=== PATIENT | female | born 1965 | race Caucasian/White ===

== ENCOUNTER 2023-06-19 10:38 | Emergency (ER) | payer OTHER, SELFPAY ==
[2023-06-19 10:39] VITALS: BP 119/76
[2023-06-19 11:49] VITALS: BP 93/72
[2023-06-19 12:03] LABS: % Basophils 0.3 % (0-2); % Eosinophils 0.6 % (0-6); % Immature Granulocytes 0.2 % (0-0.5); % Lymphocytes 15.9 % (20.5-51.1); % Monocytes 8.1 % (1.7-9.3); % Neutrophils 74.9 % (42.2-75.2); Absolute Eosinophils 0.1 10^3/uL (0-0.7); Absolute Neutrophils 9.6 10^3/uL (1.4-6.5); Hematocrit 39.5 % (37.0-47.0); Hemoglobin 13.9 g/dL (12.0-16.0); Mean Corp Hgb Conc. 35.2 g/dL (33.0-37.0); Mean Corpuscular Hgb 31.2 pg (27.0-31.0); Mean Corpuscular Volume 88.6 fL (81.0-99.0); Mean Platelet Volume 9.4 fL (7.4-10.4); Nucleated Red Blood Cells % 0 %; Platelet Count 258 10^3/uL (130-400); Red Blood Cell Count 4.46 10^6/uL (4.20-5.40); Red Cell Dist. Width 12.1 % (11.5-14.5); White Blood Cell Count 12.8 10^3/uL (4.8-10.8)
[2023-06-19 12:11] LABS: COVID-19 Antigen Negative (Negative)
[2023-06-19 12:14] LABS: ALT (SGPT) 10 U/L (0-35); AST (SGOT) 19 U/L (14-36); Albumin 4.5 g/dl (3.5-5.0); Alkaline Phosphatase 73 U/L (38-126); Blood Urea Nitrogen 10 mg/dl (7-17); Calcium 9.4 mg/dl (8.4-10.2); Carbon Dioxide 22 mmol/L (22-30); Chloride 107 mmol/L (98-107); Glucose 109 mg/dl (70-99); Potassium 3.8 mmol/L (3.5-5.1); Sodium 136 mmol/L (135-145); Total Bilirubin 0.8 mg/dl (0.2-1.3); Total Protein 7.6 g/dl (6.3-8.2); eGFR > 60.00
--- NOTE | 2023-06-19 12:33 | ED.GENMED ---
History of Present Illness
General
Chief Complaint: Cold/Flu/URI Symptoms
Source: patient
Exam Limitations: none
Time Seen by Provider: 06/19/23 12:33
Nursing documentation reviewed up to this point in time: agreed with
Travel History
Have you had any contact with someone who has COVID-19?: No
Do you have any symptoms of coronavirus? Fever > 100 degrees, chills, cough, shortness of breath, sore throat, loss of taste or smell, muscle aches, or headache?: No
History of Present Illness
History of Present Illness:
57-year-old female with past medical history of tobacco use, hypothyroidism, asthma who is presenting emergency department today with 2 days of cough, generalized URI symptoms, and fevers/chills. Patient states that she is also had a decreased
appetite associated with this. Patient also has left upper back discomfort that she has had for the past few weeks. Patient denies any trouble breathing, chest pain, abdominal pain. Patient denies any nausea or vomiting. Patient has any dysuria.
Patient states that she has an albuterol inhaler at home that she uses as needed, she states that she has only had to use it much. Patient denies any syncopal episodes. Patient denies any palpitations. Patient denies any lower leg swelling or
pain. Patient denies history of hospitalization for pneumonia
Past History
Past History
ED Past Medical History: Asthma, Hypothyroidism and Other (Pancreatitis)
ED Past Surgical History: Gynecological and Other (Anal fissure)
Social History
Tobacco: Smoker
Alcohol: Daily
Personal: Single
Employment: Employed
Family History
Family History: Other (Noncontributory)
Review of Systems
Review of Systems
All Other Systems: ROS reviewed and negative except as documented in HPI and ROS
Phy Exam
Physical Exam
Physical Exam:
General: Patient is well appearing and in no acute distress; non-toxic
Skin: Warm and dry, no rashes or lesions
Head: Normocephalic, atraumatic
Eyes: Sclera non-icteric. EOMs intact.
Throat: Posterior pharynx non-erythematous.
Cardiac: Regular rate and rhythm, no murmurs
Peripheral Vascular: No lower extremity edema or erythema. Negative Andrei's sign bilaterally.
Pulm: Normal respiratory effort, patient is not hypoxic. Scattered wheezes heard in upper lung bases.
Abdomen: No abdominal tenderness to palpation.
Musculoskeletal: Patient has no tenderness to palpation of left upper back. Patient has full range of motion of bilateral upper extremities.
Neuro: CN II-XII intact, no focal neurologic deficits.
Psychiatric: Appropriate mood and affect.
Scores
PE Wells Score
Symptoms of DVT: No
No alternative diagnosis better explains the illness: No
Tachycardia with pulse > 100: No
Immobilization (>=3 days) or surgery within previous 4 weeks: No
Prior history of DVT or pulmonary embolism: No
Presence of hemoptysis: No
Presence of malignancy: No
Pulmonary Embolism Risk Score: 0
Probability of PE: Pt is low risk
Course
Orders/Labs/Results
Orders:
Orders
06/19/23 10:45
ECG [Electrocardiogram (*1)] Urgent
Reason for Study: Other
Other Reason for Exam: L shoulder pain
EKG- Treatment ONCE
06/19/23 11:34
CR Chest - 2 Views Urgent
Comment:
Reason For Exam: SOB, cough, L upper back pain
06/19/23 11:43
COVID-19 Antigen Urgent
Source: Nasal Swab
Complete Blood Count/With Diff Urgent
Comprehensive Metabolic Panel Urgent
Influenza A+B Rapid Molecular Urgent
DAIANA Source: Nasal Swab
Specimen Description:
06/19/23 12:44
Ipratropium/Albuterol Sulfate [Duoneb] 3 ml INH R NOW ONE
06/19/23 12:53
0.9% Sodium Chloride 500 ml [Nss] 500 ml IV BOLUS
Abnormal Lab Results
06/19/23
11:43
WBC 12.8 H 10^3/uL
(4.8-10.8)
MCH 31.2 H pg
(27.0-31.0)
Absolute Neuts (auto) 9.6 H 10^3/uL
(1.4-6.5)
Absolute Monos (auto) 1.0 H 10^3/uL
(0.1-0.6)
Lymphocytes % 15.9 L %
(20.5-51.1)
Glucose 109 H mg/dl
(70-99)
06/19/23 11:43
06/19/23 11:43
Vital Signs
Initial and Last Documented VS:
Initial Vital Signs
Temp Pulse Resp BP Pulse Ox
98.1 F 92 24 119/76 98
06/19/23 10:39 06/19/23 10:39 06/19/23 10:39 06/19/23 10:39 06/19/23 10:39
Last Documented Vital Signs
Temp Pulse Resp BP Pulse Ox
98.1 F 76 19 96/56 97
06/19/23 10:39 06/19/23 12:53 06/19/23 12:53 06/19/23 14:00 06/19/23 14:30
MDM/Problems Addressed
Differential Diagnosis Includes:
Differentials include asthma exacerbation, acute bronchitis, pneumonia, influenza, COVID-19, COPD, PE
MDM/Problems Addressed:
coughing, general URI symptoms
*Radiology
Radiology exam reviewed: preliminary read by ED provider (On my read, no acute cardiopulmonary disease)
*Pulse Oximetry
Patient hypoxic: no
*EKG
Interpreted by ED Provider?: Yes
EKG Intrepretation Date: 05/02/24
Interpretation: normal
Comparison EKG: no changes
Heart Rate: 75
Rate: normal
Rhythm: sinus
[place]: normal axis
Interval: normal interval, normal QT interval and normal HI interval
QRS Pattern: normal QRS
Ischemia: no ischemia
*Critical Care Note
Total Time (30-74mins, 75-104mins- exclusive of procedures): Not Applicable
Data Reviewed
Review of Other/Old Records Reveals: Records (Reviewed ER physician documentation from 10/02/2016, reviewed ER physician documentation from 09/27/2015)
Source: patient
Patient Management
Escalation/DeEscalation of care consider admission/obs:
57-year-old female with past medical history of tobacco use, hypothyroidism, asthma who is presenting emergency department today with 2 days of cough, generalized URI symptoms, and fevers/chills. On exam, patient is well-appearing, she does have
wheezing heard in upper lung bases. She is not hypoxic. She is afebrile. Her lab work here in the emergency department demonstrates a leukocytosis, and her CMP is unremarkable. She tested negative for COVID. Her chest x-ray demonstrates
increased biapical pleural thickening as well as increased stranding in the medial and posterior aspect of the left lung base with no pleural effusion, no pneumothorax. Also showed some mild degenerative changes in the spine, which may explain
patient's back pain.
Discussed findings with patient, will initiate treatment to cover for any developing pneumonia we will send Augmentin to her pharmacy. Patient was treated here in the emergency department with fluids and 1 DuoNeb treatment. Patient that she did
feel like her symptoms improved a bit after treatment. Patient states that her nebs at home and is requesting more. This was refilled for her, a prednisone taper is also interferential. Patient agreement with plan, return precautions
given, patient will follow-up with her primary next week.
ED Attending Note
-
Portions of this chart may have been created with voice recognition software.� Occasional wrong word or��sound alike� substitutions may have occurred due to the inherent limitations of voice recognition software.
Discharge Plan
Departure
Patient Disposition: Home (Routine Discharge)
Date of Disposition: 06/19/23
Time of Disposition: 14:10
Patient with high blood pressure during this ER visit?: No
Condition: Good
Discharge Problem:
Community acquired pneumonia
Instructions: Fever, Adult (DC), Community-Acquired Pneumonia, Adult (DC), BLOOD PRESSURE
Prescriptions:
New
amoxicillin-pot clavulanate [Augmentin] 500-125 mg tablet
1 tab PO TID 5 Days Qty: 15 0RF
ipratropium-albuterol 0.5 mg-3 mg(2.5 mg base)/3 mL solution for nebulization
3 ml inhalation Q6H PRN (Reason: wheezing) Qty: 90 0RF
prednisone 10 mg Tablet
See Rx Instructions .ROUTE .COMPLEX Qty: 30 0RF
Rx Instructions:
Take By Mouth:
40 mg daily x3 days, 30 mg daily x3 days,
20 mg daily x3 days, 10 mg daily x3 days.
No Action
milk thistle 500 MG capsule
500 mg PO DAILY
levothyroxine 100 MCG tablet
100 mcg PO DAILY AT 0700
folic acid 1 MG tablet
1 mg PO DAILY
albuterol sulfate 1 PUFF HFA aerosol inhaler
1 puff inhalation R Q4HPRN PRN (Reason: SHORTNESS OF BREATH)
beclomethasone dipropionate [Qvar] 8.7 GM aerosol
2 inh IH BID
calcium carbonate-vitamin D3 1 EACH tablet
1 ea PO DAILY
pantoprazole 40 MG tablet,delayed release (DR/EC)
40 mg PO DAILY Qty: 30 0RF
ibuprofen 600 MG tablet
600 mg PO TIDPRN PRN (Reason: pain) Qty: 30 0RF
Referrals:
Sven Parker MD [Family Provider] -
Stand Alone Forms: Return to Work
Activity Restrictions/Additional Instructions:
Your chest x-ray showed findings concerning for early pneumonia.
We have sent Augmentin to your pharmacy, please take one tablet three times a day for 5 days.
For the prednisone, please follow the dosing instructions on the packet.
I also refilled your duonebs.
Please follow-up with your PCP in 1 week to ensure the resolution of your symptoms and to ensure that any pneumonia has not further developed.
Please return emergency department should you experience any acute worsening of your symptoms, chest pain, shortness of breath, intractable vomiting, or any other concerns.
Interventions
Interventions:
*Risk Screen - Suicide Last Done: 06/19/23 11:50
*General Assessment Last Done: 06/19/23 11:50
*Neglect/Abuse Screening Last Done: 06/19/23 11:50
ED- Fall Risk Assessment Last Done: 06/19/23 11:50
*ED COVID-19 Vaccine History Last Done: 06/19/23 10:43
*Nursing Disposition Last Done: 06/19/23 14:49
ED- Pulmonary Assessment Last Done: 06/19/23 11:50
Discharge Date and Time
Discharge Date/Time: 06/19/23 14:49
Print Language: LAO
[2023-06-19] MEDS: DUONEB 3 ML INH (12:49)
[2023-06-19 12:51] VITALS: BP 108/66
[2023-06-19 12:53] VITALS: BP 108/66
[2023-06-19] MEDS: NSS 500 IV (12:55)
[2023-06-19 13:00] VITALS: BP 99/56
[2023-06-19 14:00] VITALS: BP 96/56
== END 2023-06-19 14:49 | disposition home or self-care (01) ==
LOC: EMR 10:38
PROVIDERS: Emergency Medicine; EMERGENCY PHYSICIAN Emergency Medicine; FAMILY PHYSICIAN Internal Medicine
DX: J18.9 Pneumonia, unspecified organism (principal); F17.200 Nicotine dependence, unspecified, uncomplicated; E03.9 Hypothyroidism, unspecified; Z11.52 Encounter for screening for COVID-19
CPT/HCPCS: 99285; 96360; 94640; 71046; 80053; 85025; 87502; 87811; 93005

== ENCOUNTER → 2023-07-07 12:10 | Outpatient (REF) | payer OTHER, SELFPAY | LOC: RAD 12:10 | PROVIDERS: ATTENDING PHYSICIAN Physician Assistant | DX: Z09 Encounter for follow-up examination after completed treatment for conditions other than malignant neoplasm (principal); J18.9 Pneumonia, unspecified organism; F17.200 Nicotine dependence, unspecified, uncomplicated | CPT/HCPCS: 71046 ==

== ENCOUNTER 2023-08-17 15:34 | Emergency (ER) | payer OTHER, SELFPAY ==
[2023-08-17 15:36] VITALS: BP 107/71
[2023-08-17 15:52] LABS: Urine Albumin 1+ (Neg - Trace); Urine Bilirubin 1+ (Negative); Urine Character Slightly Cloudy (Clear); Urine Color Yellow; Urine Glucose Negative (Negative); Urine Ketone Trace (Negative); Urine Leukocyte 2+ (Negative); Urine Nitrite Negative (Negative); Urine Occult Blood 3+ (Negative); Urine Specific Gravity 1.025 (<1.030); Urine Urobilinogen Negative (Neg - 1+)
[2023-08-17 16:07] LABS: Urine Squamous Cell 16-20 /LPF (Few)
[2023-08-17 16:08] LABS: Urine Bacteria Moderate (Negative)
[2023-08-17 16:09] LABS: Urine Red Blood Cell 16-20 /HPF (0-2); Urine White Cell 26-30 /HPF (0-5)
--- NOTE | 2023-08-17 16:25 | ED.GENMED ---
History of Present Illness
General
Chief Complaint: Urinary Symptoms
Source: patient
Time Seen by Provider: 08/17/23 16:17
History of Present Illness
History of Present Illness:
58-year-old female presenting the emergency department for evaluation of urinary frequency, urgency and dysuria. Attempted to go to urgent care today but they were closing was unable to be seen so she decided to come to the ER. Denies any fevers,
chills, rigors, nausea, vomiting, back or flank pain or any other concerns presently. Notes that she had a urinary tract infection 3 weeks ago and was treated with Macrobid and reports full resolution of symptoms. She notes on urine culture she
did test positive for E. coli.
Past History
Past History
ED Past Medical History: Asthma, Hypothyroidism and Other (Pancreatitis)
ED Past Surgical History: Gynecological and Other (Anal fissure)
Social History
Tobacco: Smoker
Alcohol: Daily
Drug: None
Personal: Single
Living: alone
Employment: Employed
Family History
Family History: Other (Noncontributory)
Review of Systems
Review of Systems
All Other Systems: ROS reviewed and negative except as documented in HPI and ROS
Phy Exam
Physical Exam
Physical Exam:
GENERAL: Alert , in no apparent distress
EYE: conjunctiva clear
Head: Normocephalic atraumatic
NECK: Supple,
ENT: mmm.
LUNGS: no acute respiratory distress
NEUROLOGICAL: Alert and oriented
SKIN: Warm and dry, skin intact.
MUSCULOSKELETAL: well perfused.
PSYCH: Normal and appropriate interaction.
Scores
Heart Failure Risk
Heart Failure Risk Score: Not Applicable
Heart Score for Chest Pain Patients
STEMI patient?: Not applicable
Withdrawal Assessment of Alcohol
Withdrawal Assessment Completed?: Not applicable
Course
Orders/Labs/Results
Orders:
Orders
08/17/23 15:43
Urinalysis Reflex To Culture Urgent
Date Specimen was Collected: 08/17/23
Time Specimen was Collected: 15:39
Urine Microscopic Reflex Cult Urgent
Urine Culture Urgent
DAIANA Source: U
Specimen Description:
Obtained by: Random
Date Specimen was Collected: 08/17/23
Time Specimen was Collected: 15:39
08/17/23 16:21
Phenazopyridine HCl [Pyridium] 200 mg PO NOW STA
08/17/23 16:28
Cefuroxime Axetil [Ceftin] 500 mg PO NOW STA
Abnormal Lab Results
08/17/23
15:43
Urine Ketones Trace A
(Negative)
Ur Occult Blood Reflex 3+ A
(Negative)
Urine Bilirubin 1+ A
(Negative)
Leukocyte Esterase Rfl 2+ A
(Negative)
Urine RBC 16-20 A /HPF
(0-2)
Urine WBC (Reflex) 26-30 A /HPF
(0-5)
Urine Bacteria (Reflex) Moderate A
(Negative)
Urine Albumin (Reflex) 1+ A
(Neg - Trace)
Vital Signs
Initial and Last Documented VS:
Initial Vital Signs
Temp Pulse Resp BP Pulse Ox
98.1 F 90 18 107/71 94
08/17/23 15:36 08/17/23 15:36 08/17/23 15:36 08/17/23 15:36 08/17/23 15:36
Last Documented Vital Signs
Temp Pulse Resp BP Pulse Ox
98.1 F 90 18 107/71 94
08/17/23 15:36 08/17/23 15:36 08/17/23 15:36 08/17/23 15:36 08/17/23 15:36
MDM/Problems Addressed
Differential Diagnosis Includes:
Cystitis, pyelonephritis, kidney stone
MDM/Problems Addressed:
58-year-old female present emergency department for urinary frequency/urgency/dysuria x 1 day. Recent UTI about 3 weeks ago that was with Macrobid and had resolution of symptoms however symptoms returned. She is afebrile here and otherwise
well-appearing. Urinalysis shows 2+ leukocyte esterase and 26-30 WBCs. Based off of symptoms and urinalysis findings symptoms seem to be most suggestive of urinary tract infection. Will treat with cefuroxime for 10 days. Urine culture sent.
Patient stable for discharge home and outpatient management with primary care provider. Aware of return precautions to the ER.
*Pulse Oximetry
Patient hypoxic: no
*Critical Care Note
Total Time (30-74mins, 75-104mins- exclusive of procedures): Not Applicable
ED Attending Note
-
Portions of this chart may have been created with voice recognition software.� Occasional wrong word or��sound alike� substitutions may have occurred due to the inherent limitations of voice recognition software.
Discharge Plan
Departure
Patient Disposition: Home (Routine Discharge)
Date of Disposition: 08/17/23
Time of Disposition: 16:25
Patient with high blood pressure during this ER visit?: No
Discharge Problem:
Urinary tract infection
Instructions: Urinary Tract Infection, Adult (DC)
Prescriptions:
New
cefuroxime axetil 500 mg tablet
500 mg PO BID 10 Days Qty: 20 0RF
phenazopyridine [Pyridium] 200 mg tablet
200 mg PO PC PRN (Reason: Pain) Qty: 6 0RF
No Action
milk thistle 500 MG capsule
500 mg PO DAILY
levothyroxine 100 MCG tablet
100 mcg PO DAILY AT 0700
folic acid 1 MG tablet
1 mg PO DAILY
albuterol sulfate 1 PUFF HFA aerosol inhaler
1 puff inhalation R Q4HPRN PRN (Reason: SHORTNESS OF BREATH)
beclomethasone dipropionate [Qvar] 8.7 GM aerosol
2 inh IH BID
calcium carbonate-vitamin D3 1 EACH tablet
1 ea PO DAILY
pantoprazole 40 MG tablet,delayed release (DR/EC)
40 mg PO DAILY Qty: 30 0RF
ibuprofen 600 MG tablet
600 mg PO TIDPRN PRN (Reason: pain) Qty: 30 0RF
amoxicillin-pot clavulanate [Augmentin] 500-125 mg tablet
1 tab PO TID 5 Days Qty: 15 0RF
ipratropium-albuterol 0.5 mg-3 mg(2.5 mg base)/3 mL solution for nebulization
3 ml inhalation Q6H PRN (Reason: wheezing) Qty: 90 0RF
prednisone 10 mg Tablet
See Rx Instructions .ROUTE .COMPLEX Qty: 30 0RF
Rx Instructions:
Take By Mouth:
40 mg daily x3 days, 30 mg daily x3 days,
20 mg daily x3 days, 10 mg daily x3 days.
Referrals:
Elsa Vargas PA-C [Family Provider] -
Interventions
Interventions:
*Risk Screen - Suicide Last Done: 08/17/23 16:02
*General Assessment Last Done: 08/17/23 16:02
*Neglect/Abuse Screening Last Done: 08/17/23 16:02
ED- Fall Risk Assessment Last Done: 08/17/23 16:38
*ED COVID-19 Vaccine History Last Done: 08/17/23 16:02
*Nursing Disposition Last Done: 08/17/23 16:39
ED-Female Genitourinary Assessment Last Done: 08/17/23 16:02
Discharge Date and Time
Discharge Date/Time: 08/17/23 16:39
Print Language: HEBREW
[2023-08-17] MEDS: CEFTIN 500 MG PO (16:33)
[2023-08-17] MEDS: Pyridium 200 MG PO (16:33)
== END 2023-08-17 16:39 | disposition home or self-care (01) ==
LOC: EMR 15:34
PROVIDERS: EMERGENCY PHYSICIAN Emergency Medicine; FAMILY PHYSICIAN Physician Assistant
DX: N39.0 Urinary tract infection, site not specified (principal); F17.200 Nicotine dependence, unspecified, uncomplicated
CPT/HCPCS: 99283; 81003; 81015; 87086

== ENCOUNTER 2023-08-26 01:03 | Inpatient (IN) | payer OTHER, SELFPAY ==
[2023-08-25 23:42] VITALS: BP 107/88
[2023-08-25 23:44] VITALS: BP 107/88
[2023-08-25 23:46] VITALS: BMI 25.4
[2023-08-25] MEDS: DILAUDID 1 MG IV (23:49)
[2023-08-26] VITALS (7 sets, daily range): BP systolic 105–123; BP diastolic 62–75; BMI 23.8
[2023-08-26 00:10] LABS: % Basophils 0.6 % (0-2); % Eosinophils 1.8 % (0-6); % Immature Granulocytes 0.3 % (0-0.5); % Lymphocytes 36.9 % (20.5-51.1); % Monocytes 8.4 % (1.7-9.3); Absolute Basophils 0.1 10^3/uL (0-0.2); Absolute Eosinophils 0.2 10^3/uL (0-0.7); Absolute Lymphocytes 3.5 10^3/uL (1.2-3.4); Absolute Monocytes 0.8 10^3/uL (0.1-0.6); Absolute Neutrophils 4.9 10^3/uL (1.4-6.5); Hematocrit 41.8 % (37.0-47.0); Hemoglobin 14.2 g/dL (12.0-16.0); Mean Corpuscular Volume 91.3 fL (81.0-99.0); Mean Platelet Volume 9.8 fL (7.4-10.4); Nucleated Red Blood Cells % 0 %; Platelet Count 314 10^3/uL (130-400); Red Blood Cell Count 4.58 10^6/uL (4.20-5.40); Red Cell Dist. Width 12.7 % (11.5-14.5); White Blood Cell Count 9.4 10^3/uL (4.8-10.8)
[2023-08-26 00:23] LABS: Blood Urea Nitrogen 7 mg/dl (7-17); Calcium 10.2 mg/dl (8.4-10.2); Carbon Dioxide 23 mmol/L (22-30); Chloride 108 mmol/L (98-107); Estimated Creatinine Clearance 68 ml/min; Glucose 137 mg/dl (70-99); Potassium 3.8 mmol/L (3.5-5.1); Sodium 139 mmol/L (135-145); eGFR > 60.00
[2023-08-26 00:24] LABS: INR 1.05; PT 13.5 Sec (11.4-14.6)
--- NOTE | 2023-08-26 00:24 | ED.GENMED ---
History of Present Illness
General
Chief Complaint: Musculo-Skeletal Complaint
Source: patient and ambulance crew
Time Seen by Provider: 08/25/23 23:45
History of Present Illness
History of Present Illness:
58-year-old female with past medical history of hypothyroidism presenting to the emergency department for evaluation with EMS after she reportedly was walking outside to have a cigarette when she felt a sudden pain and snapping sensation to her
right upper thigh with deformity causing her to fall to the ground. Patient was unable to get up off the ground and EMS was contacted and they noted significant edema and deformity to the right proximal thigh. Patient received a total of 75 mcg of
fentanyl and route to the emergency department, still noting 8 out of 10 pain. Notes that she has been having pain to this extremity for about a month to a month and a half. Saw urgent care over the weekend and had x-rays done which reportedly did
not show any abnormality
Past History
Past History
ED Past Medical History: Asthma, Hypothyroidism and Other (Pancreatitis)
ED Past Surgical History: Gynecological and Other (Anal fissure)
Social History
Tobacco: Smoker
Alcohol: Daily
Drug: None
Personal: Single
Living: alone
Employment: Employed
Family History
Family History: Other (Noncontributory)
Review of Systems
Review of Systems
All Other Systems: ROS reviewed and negative except as documented in HPI and ROS
Phy Exam
Physical Exam
Physical Exam:
GENERAL: Alert , in no apparent distress
EYE: conjunctiva clear
Head: Normocephalic atraumatic
NECK: Supple,
ENT: mmm.
LUNGS: no acute respiratory distress
NEUROLOGICAL: Alert and oriented
SKIN: Warm and dry, skin intact.
MUSCULOSKELETAL: Right lower extremity: Deformity at the right proximal femur. Moderate soft tissue swelling. No tenderness of the knee, tib-fib or ankle. Easily palpable pedal pulse. Cap refill less than 2 seconds. Sensation grossly intact to
light touch. Remainder of extremities within normal limits
PSYCH: Normal and appropriate interaction.
Scores
Heart Failure Risk
Heart Failure Risk Score: Not Applicable
Heart Score for Chest Pain Patients
STEMI patient?: Not applicable
Withdrawal Assessment of Alcohol
Withdrawal Assessment Completed?: Not applicable
Course
Orders/Labs/Results
Orders:
Orders
08/25/23 23:46
HYDROmorphone [Dilaudid] 1 mg IV NOW STA
08/25/23 23:55
Type+Screen Urgent
Basic Metabolic Panel Urgent
Complete Blood Count/With Diff Urgent
PTT Urgent
Prothrombin Time Urgent
08/26/23 00:00
CR Hip - RT without Pel 1 Vw Urgent
Reason For Exam: deformity, severe pain
08/26/23 00:22
CT Lower Ext W/o Iv Cont Rt Urgent
Comment:
Reason For Exam: proximal femur fracture
08/26/23 00:33
Alcohol Routine
08/26/23 00:34
Urine Drug Abuse Screen Routine
Abnormal Lab Results
08/25/23
23:55
Absolute Lymphs (auto) 3.5 H 10^3/uL
(1.2-3.4)
Absolute Monos (auto) 0.8 H 10^3/uL
(0.1-0.6)
Chloride 108 H mmol/L
(98-107)
Glucose 137 H mg/dl
(70-99)
08/25/23 23:55
08/25/23 23:55
Vital Signs
Initial and Last Documented VS:
Initial Vital Signs
Pulse Resp BP Pulse Ox
70 16 107/88 99
08/25/23 23:44 08/25/23 23:44 08/25/23 23:44 08/25/23 23:44
Last Documented Vital Signs
Pulse Resp BP Pulse Ox
70 16 107/88 99
08/25/23 23:44 08/25/23 23:44 08/25/23 23:44 08/25/23 23:44
MDM/Problems Addressed
Differential Diagnosis Includes:
Fracture, dislocation, concern for possible pathologic fracture/malignancy severe osteoporosis
MDM/Problems Addressed:
58-year-old female presenting emergency department for evaluation with EMS following nontraumatic injury to her right proximal femur. Based off presentation I do have significant concern for proximal femur fracture. Stat x-ray was ordered. 1 mg
Dilaudid ordered for pain control. Will consult with orthopedics following x-ray. Anticipate admission
*Radiology
Radiology exam reviewed: preliminary read by ED provider (Displaced and angulated proximal femur fracture)
*Pulse Oximetry
Patient hypoxic: no
*Critical Care Note
Total Time (30-74mins, 75-104mins- exclusive of procedures): Not Applicable
Data Reviewed
Review of Other/Old Records Reveals: Labs and Records
Patient Management
Discussion with other providers: Hospitalist and Shank Boner
Escalation/DeEscalation of care consider admission/obs:
Dr. Saul from orthopedics was consulted and requests full femur imaging and for patient to be kept n.p.o. He will see in the morning with plans for fixing tomorrow morning. Hospitalist team was notified and accepts for continued evaluation
and treatment.
ED Attending Note
-
Portions of this chart may have been created with voice recognition software.� Occasional wrong word or��sound alike� substitutions may have occurred due to the inherent limitations of voice recognition software.
Discharge Plan
Departure
Patient Disposition: Admit
Date of Disposition: 08/26/23
Time of Disposition: 00:24
Presentation/result/management discussed w/ accepting MD/DO: Hospitalist
Discharge Problem:
Closed fracture of proximal end of right femur
Prescriptions:
No Action
milk thistle 500 MG capsule
500 mg PO DAILY
levothyroxine 100 MCG tablet
100 mcg PO DAILY AT 0700
folic acid 1 MG tablet
1 mg PO DAILY
albuterol sulfate 1 PUFF HFA aerosol inhaler
1 puff inhalation R Q4HPRN PRN (Reason: SHORTNESS OF BREATH)
beclomethasone dipropionate [Qvar] 8.7 GM aerosol
2 inh IH BID
calcium carbonate-vitamin D3 1 EACH tablet
1 ea PO DAILY
pantoprazole 40 MG tablet,delayed release (DR/EC)
40 mg PO DAILY Qty: 30 0RF
ibuprofen 600 MG tablet
600 mg PO TIDPRN PRN (Reason: pain) Qty: 30 0RF
amoxicillin-pot clavulanate [Augmentin] 500-125 mg tablet
1 tab PO TID 5 Days Qty: 15 0RF
ipratropium-albuterol 0.5 mg-3 mg(2.5 mg base)/3 mL solution for nebulization
3 ml inhalation Q6H PRN (Reason: wheezing) Qty: 90 0RF
prednisone 10 mg Tablet
See Rx Instructions .ROUTE .COMPLEX Qty: 30 0RF
Rx Instructions:
Take By Mouth:
40 mg daily x3 days, 30 mg daily x3 days,
20 mg daily x3 days, 10 mg daily x3 days.
cefuroxime axetil 500 mg tablet
500 mg PO BID 10 Days Qty: 20 0RF
phenazopyridine [Pyridium] 200 mg tablet
200 mg PO PC PRN (Reason: Pain) Qty: 6 0RF
Interventions
Interventions:
*General Assessment Last Done: 08/25/23 23:47
ED-Musculoskeletal Assessment Last Done: 08/26/23 00:10
Discharge Date and Time
Print Language: ALBANIAN
[2023-08-26 00:25] LABS: APTT 26.7 Sec (23.4-35.0)
--- NOTE | 2023-08-26 00:45 | HPS.HSE ---
Family Physician
-
Family Physician: Elsa Vargas
Chief Complaint
-
Rt Hip deformity and pain
History of Present Illness
58F HX pancreatitis, HX ETOH use disorder came to ER with Rt Leo deformity for further evaluation:
Painful Rt Leo deformity
- denied trauma or recent fall
- Hip XR POS for prox femur Fx
Medical History
Past Medical History
Past Medical History: Reports Asthma, Hypothyroidism and Other (ETOH use disorder, pancreatitis , B12 and Vitamin D deficiency. )
Past Surgical History: Reports Other (anal fissure repair.)
Social History
Tobacco: Smoker (1ppd)
Alcohol: Daily ( 4-5 beers every day.)
Drug: None
Family History
Family History: Not pertinent
Allergies / Home Medications
Allergies reflects when Allergies were last updated in [facility].
Home Medications with original date entered in [facility]
Allergy/Medication List:
Allergies
Allergy/AdvReac Type Severity Reaction Status Date / Time
methylprednisolone Allergy Unknown Verified 08/25/23 23:44
[From Medrol]
varenicline tartrate Allergy redness, Verified 08/25/23 23:44
[From Chantix] itching,
rash
Home Medications
albuterol sulfate 90 mcg/actuation aerosol inhaler 1 puff inhalation R Q4HPRN PRN SHORTNESS OF BREATH 09/27/15
beclomethasone dipropionate 40 mcg/actuation aerosol inhaler (Qvar) 2 inh IH BID 09/27/15
calcium carbonate 500 mg-vitamin D3 15 mcg (600 unit) tablet 1 ea PO DAILY 09/27/15
folic acid 1 mg tablet 1 mg PO DAILY 09/27/15
levothyroxine 100 mcg tablet 100 mcg PO DAILY AT 0700 09/27/15
milk thistle 500 mg capsule 500 mg PO DAILY 09/27/15
pantoprazole 40 mg tablet,delayed release 40 mg PO DAILY #30 tabs 09/30/15
ibuprofen 600 mg tablet 600 mg PO TIDPRN PRN pain #30 tabs 06/03/16
amoxicillin 500 mg-potassium clavulanate 125 mg tablet (Augmentin) 1 tab PO TID 5 days #15 tabs 06/19/23
ipratropium 0.5 mg-albuterol 3 mg (2.5 mg base)/3 mL nebulization soln 3 ml inhalation Q6H PRN wheezing #90 mL 06/19/23
prednisone 10 mg tablet See Rx Instructions .Route .COMPLEX Cough #30 tabs 06/19/23
cefuroxime axetil 500 mg tablet 500 mg PO BID 10 days #20 tabs 08/17/23
phenazopyridine 200 mg tablet (Pyridium) 200 mg PO PC PRN Pain 6 doses #6 tabs 08/17/23
Review of Systems
-
Constitutional: Reports No Symptoms
EENT: Reports No Symptoms
Respiratory: Reports No Symptoms
Cardiac: Reports No Symptoms
Abdomen/GI: Reports No Symptoms
: Reports No Symptoms
Musculoskeletal: Reports See HPI
Skin: Reports No Symptoms
Neurological: Reports No Symptoms
Endocrine: Reports No Symptoms
Hematologic/Lymphatic: Reports No Symptoms
Psych: Reports No Symptoms
Physical Exam
Vital Signs
Vital Signs
Pulse Resp BP Pulse Ox
70 16 107/88 99
08/25/23 23:44 08/25/23 23:44 08/25/23 23:44 08/25/23 23:44
Physical Exam
General: Well Developed, Well Nourished and No Apparent Distress
HEENT: NormoCephalic, Moist mucous membranes and Atraumatic
Respiratory: Clear
Cardiac: S1/S2 and Regular Rhythm; No Murmur or Rub
GI: Soft, Non Tender, Non Distended and Normal Bowel Sounds; No Organomegaly
Rectal: Deferred by Provider
Musculoskeletal: No Clubbing, No Cyanosis and No Edema
Skin: No Rash
Neuro: Nonfocal/grossly intact
Laboratory Results
-
08/25/23 23:55
08/25/23 23:55
Laboratory Results
PT 13.5 Sec (11.4-14.6) 08/25/23 23:55
INR 1.05 08/25/23 23:55
APTT 26.7 Sec (23.4-35.0) 08/25/23 23:55
Data Reviewed
-
CT Scan: Other (pending )
Lab Data: Labs Reviewed by me
Old Records: Reviewed
Impression/Plan
-
Reviewed VS: BP 107/88 HR 70
Data
Unremarkable CBC
Unremarkable BMP
BG 137
08/25/23 Rt Hip XR: Prx Rt femur Fx.
08/26/23: CT Rt Leo pending
Last hospitalist admission: 09/27/2015
P Dx:
Pancreatitis
ETOH use disorder
ASSESSMENT & PLAN
Rt proximal femur Fx
- DDX: Pathologic Fx of underlying severe osteoporosis vs. Fall with no memory while under ETOH use
- denied Trauma
- HX ETOH use disorder
- pending CT Rt Leo
- agree with CT Leo
- NPO and IVF
- narcotic Analgesia PRN
- Ortho consulted
HX ETOH use disorder complicated with pancreatitis in 2015
- check ETOH level
- check UDS for occult substance abuse
- MSAS protocol
Pre existing chr medical conditions but stable: Pending Rx reconciliation
Hypothyroidism on LT4
HX Asthma
DVT Px : SCD
Full code
IP MS
[2023-08-26] MEDS: COMPAZINE 5 MG IV (02:35)
[2023-08-26] MEDS: NSS 1000 IV ×2 (02:36→15:34)
[2023-08-26] MEDS: DILAUDID 0.5 MG IV ×4 (02:36→19:31)
[2023-08-26] MEDS: NICODERM TRANSDERMAL 14 MG TRANSDERM ×2 (02:52→07:59)
--- NOTE | 2023-08-26 03:08 | PTCARENOTE ---
Pt admitted from ED to room 2137, aaox3, c/o pain 10/10 from right leg femur fx, medicated with + effect. MSAS protocol initiated. Pt is current smoker and requesting nicotine patch, applied patch to [facility]. VSS
[2023-08-26] MEDS: TYLENOL PO (04:35)
[2023-08-26 04:40] LABS: GGTP 19 U/L (12-43)
[2023-08-26 05:12] LABS: Alcohol None Detected
[2023-08-26] MEDS: SYNTHROID 100 MCG PO (06:13)
[2023-08-26] MEDS: TYLENOL 650 MG PO ×4 (08:01→19:33)
[2023-08-26] MEDS: THIAMINE INJECTION 200 MG IV ×2 (08:01→19:33)
[2023-08-26] MEDS: FOLVITE 1 MG PO (08:01)
--- NOTE | 2023-08-26 09:00 | CON.ORTHO ---
Consultation
-
Date/Time Consultation Requested: 1220 AM 08/26/2023
Date/Time Consultation Performed: 845 AM 08/26/2023
Requesting Provider: Paulo
Performing Provider: Kg
Reason for Consultation: Left subtroch femur fracture
Consultation - Orthopedics
History
HPI: 58-year-old female presented to the emergency department complaints of right hip pain and inability to bear weight. She was subsequently diagnosed with a right subtrochanteric femur fracture admitted to the medical service. Orthopedics is
consulted for further evaluation and treatment. She reports that she has had about 4 to 6 weeks of progressively worsening right thigh pain that has made ambulation somewhat difficult. She reports that she felt a 'snap' yesterday while walking and
had subsequent pain and inability to bear weight. She localizes pain to the right hip and groin region. She does report a history of osteoporosis and is on Fosamax for the last couple of years. She lives with her son and mother. She does work.
She ambulates without assistive device. She does report smoking about 15 cigarettes/day.
Allergies / Home Medications
Past medical history:Asthma, hypothyroidism, pancreatitis, B12 vitamin D deficiency
Surgical history: Anal fissure repair
Social history: Tobacco smoker, marijuana smoker, reports alcohol use several times per week to me
Family history: Not pertinent
Allergy/AdvReac Type Severity Reaction Status Date / Time
methylprednisolone Allergy Unknown Verified 08/25/23 23:44
[From Medrol]
varenicline tartrate Allergy redness, Verified 08/25/23 23:44
[From Chantix] itching,
rash
�Medication �Instructions �Recorded
albuterol sulfate 90 mcg/actuation 1 puff inhalation R Q4HPRN PRN 09/27/15
aerosol inhaler SHORTNESS OF BREATH
beclomethasone dipropionate 40 2 inh IH BID 09/27/15
mcg/actuation aerosol inhaler
(Qvar)
calcium carbonate 500 mg-vitamin 1 ea PO DAILY 09/27/15
D3 15 mcg (600 unit) tablet
folic acid 1 mg tablet 1 mg PO DAILY 09/27/15
levothyroxine 100 mcg tablet 100 mcg PO DAILY AT 0700 09/27/15
milk thistle 500 mg capsule 500 mg PO DAILY 09/27/15
pantoprazole 40 mg tablet,delayed 40 mg PO DAILY #30 tabs 09/30/15
release
ibuprofen 600 mg tablet 600 mg PO TIDPRN PRN pain #30 tabs 06/03/16
amoxicillin 500 mg-potassium 1 tab PO TID 5 days #15 tabs 06/19/23
clavulanate 125 mg tablet
(Augmentin)
ipratropium 0.5 mg-albuterol 3 mg 3 ml inhalation Q6H PRN wheezing 06/19/23
(2.5 mg base)/3 mL nebulization #90 mL
soln
prednisone 10 mg tablet See Rx Instructions .Route 06/19/23
.COMPLEX Cough #30 tabs
cefuroxime axetil 500 mg tablet 500 mg PO BID 10 days #20 tabs 08/17/23
phenazopyridine 200 mg tablet 200 mg PO PC PRN Pain 6 doses #6 08/17/23
(Pyridium) tabs
Vital Signs / Lab Results
Temp Pulse Resp BP Pulse Ox
98.3 F 64 16 114/75 94
08/26/23 07:30 08/26/23 07:30 08/26/23 07:30 08/26/23 07:30 08/26/23 07:30
08/25/23 23:55
08/25/23 23:55
10 point review systems reviewed and negative unless otherwise stated
General: Pleasant, no acute distress at rest
Musculoskeletal right lower extremity
Skin intact, no erythema, ecchymotic staining
Moderate swelling right thigh
Tender palpation over thigh groin and lateral trochanteric flare
Extremity shortened externally rotated
No ipsilateral palpable tenderness over knee
Positive EHL, FHL, ankle dorsiflexion, plantarflexion
Brisk cap refill
No other areas of bony tenderness palpation or crepitation on tertiary examination of long bones and joints
Diagnostic studies
X-ray right hip as well as CT scan right femur reviewed by myself. There is a relatively transverse subtrochanteric femur fracture with significant displacement
Assessment / Plan
58-year-old female history of osteoporosis on Fosamax with right subtrochanteric femur fracture displaced. This does look somewhat atypical and may be consistent with atypical subtrochanteric femur fracture associated with bisphosphonates. I had a
long detailed discussion with patient regarding diagnosis and treatment options. My recommendation is to proceed with operative fixation of form of long cephalomedullary nail fixation. We discussed risks benefits and alternatives of surgery.
Discussed the usual expected perioperative postoperative course. Verbal consent was obtained to proceed with surgery. Will plan to obtain written informed consent prior to the OR. Will plan for surgery tomorrow.
Nonweightbearing right lower extremity
N.p.o. at midnight
Pain control
Please hold DVT prophylaxis in a.m. in preparation for OR
Medical management per primary team
Plan: 2 OR tomorrow for long cephalomedullary nail fixation right subtrochanteric femur fracture pending medical clearance and or availability
--- NOTE | 2023-08-26 09:48 | W.PN.HOSP.TC ---
Today's Communication/Plan
-
*awaiting med rec
-resume Ceftin for UTI (has 2 more days)
-appreciate ortho
-diet today, NPO after MN
Assessment / Plan
Assessment / Plan
Hip X-Ray 08/26/23
IMPRESSION: Single frontal projection shows angulated, impacted proximal right femoral diaphyseal fracture as above. No definite osteolytic lesion at the level of the fracture identified radiographically.
Lower Extremity CT
IMPRESSION: Angulated mildly impacted proximal right femoral diaphyseal fracture as described. No abnormal osteolytic lesion identified at the level of the fracture at CT. The configuration is suggestive of atypical femoral fracture/bisphosphonate
related proximal femoral fracture.
Rt proximal femur Fx
- DDX: Pathologic Fx of underlying severe osteoporosis concern for bisphosphonate related proximal femoral fracture
- denied Trauma
- appreciate Ortho, plan for OR tomorrow
- narcotic Analgesia PRN
- will order diet today, NPO after MN
-medically optimized for surgery
HX ETOH use disorder complicated with pancreatitis in 2016
- patient now states drinks 2 beers/day not every day
- check ETOH level - none detected
- check UDS for occult substance abuse
- MSAS protocol
recent diagnosis UTI
-continue prescribed Ceftin - patient was 2 more days
Pre existing chr medical conditions but stable: Pending Rx reconciliation
Hypothyroidism on LT4
HX Asthma
DVT Px : SCD
Full code
IP MS
Anticipated Discharge: > 48 hours
Subjective/Interval History
-
Date of Service: August 26, 2023
denies chest pain or shortness of breath
hip pain controlled with meds receiving
Objective Data
-
Labs:
Laboratory Results
08/25/23
23:55
WBC 9.4
Hgb 14.2
Hct 41.8
Plt Count 314
PT 13.5
INR 1.05
APTT 26.7
Sodium 139
Potassium 3.8
Chloride 108 H
Carbon Dioxide 23
BUN 7
Creatinine 0.7
Glucose 137 H
Calcium 10.2
Vital Signs:
Vital Signs
Temp Pulse Resp BP Pulse Ox
98.3 F 64 16 114/75 94
08/26/23 07:30 08/26/23 07:30 08/26/23 07:30 08/26/23 07:30 08/26/23 07:30
I&O
08/25/23 08/26/23 08/27/23
06:59 06:59 06:59
Intake Total 240 / 240
Balance 240 / 240
Review of Systems
-
History Source: Patient
All other systems: Reviewed and negative
Physical Exam
-
General: No Apparent Distress and Conversant
HEENT: PERRLA
Respiratory: Clear to Auscultation; Negative Wheezes
Cardiac: Regular Rhythm and S1/S2
GI: Soft and Nontender
Musculoskeletal: No Edema
Skin: Warm and Dry; Negative Rash
Neuro: AO x 3
Psych: Calm
Data Reviewed
-
Diagnostic Radiology: Report Reviewed by me
Labs: Labs Reviewed by me
[2023-08-26] MEDS: PROTONIX 40 MG PO (11:34)
[2023-08-26] MEDS: CEFTIN 250 MG PO ×2 (11:39→19:33)
--- NOTE | 2023-08-26 15:43 | CM ---
Reviewed the chart notes and spoke with the patient at the bedside. CM consult received for substance abuse counseling. Discussed various resources, patient declined stating 'I don't have a problem'. The patient resides with her mother and son in
a two story home with four steps to enter. The patient resides in the finished basement of the home. The patient reports no DME/VN/SNF. The patient requested CM reach out to her attorney recruiter Mj Garcia ([phone]) regarding a legal matter
requiring her to report to residential on Friday. Message left with the attorney recruiter's office. CM continues to be available to patient/family and is monitoring medical plan for needs at discharge.
Plan: Discharge plans will depend on the patient's progress.
[2023-08-26 19:32] LABS: Amphetamines Negative (Negative); Barbiturates Negative (Negative); Benzodiazepines Negative (Negative); Buprenorphine Negative (Negative); Cocaine Negative (Negative); Marijuana Positive (Negative); Methadone Negative (Negative); Methamphetamines Negative (Negative); Opiates Positive (Negative); Phencyclidine Negative (Negative)
[2023-08-26] MEDS: SENOKOT 17.2 MG PO (19:32)
[2023-08-26] MEDS: COLACE 100 MG PO (19:33)
[2023-08-26 19:58] LABS: Fentanyl, Urine Positive (Negative)
[2023-08-26 20:11] LABS: Tricyclic Antidepressants Negative (Negative)
[2023-08-27] VITALS (12 sets, daily range): BP systolic 86–117; BP diastolic 47–76; BMI 24.9
[2023-08-27] MEDS: TYLENOL 650 MG PO ×4 (00:10→16:45)
[2023-08-27] MEDS: DILAUDID 0.5 MG IV ×2 (00:36→10:36)
[2023-08-27] MEDS: TYLENOL PO ×3 (04:20→23:58)
[2023-08-27] MEDS: SYNTHROID 100 MCG PO (05:35)
[2023-08-27] MEDS: NSS 1000 IV (05:35)
[2023-08-27 07:15] LABS: Hematocrit 37.5 % (37.0-47.0); Hemoglobin 12.6 g/dL (12.0-16.0); Mean Corp Hgb Conc. 33.6 g/dL (33.0-37.0); Mean Corpuscular Hgb 30.4 pg (27.0-31.0); Mean Corpuscular Volume 90.4 fL (81.0-99.0); Mean Platelet Volume 9.2 fL (7.4-10.4); Platelet Count 266 10^3/uL (130-400); Red Blood Cell Count 4.15 10^6/uL (4.20-5.40); Red Cell Dist. Width 12.9 % (11.5-14.5); White Blood Cell Count 9.5 10^3/uL (4.8-10.8)
[2023-08-27 08:48] LABS: Blood Urea Nitrogen 5 mg/dl (7-17); Calcium 8.8 mg/dl (8.4-10.2); Carbon Dioxide 21 mmol/L (22-30); Chloride 111 mmol/L (98-107); Estimated Creatinine Clearance 79 ml/min; Glucose 97 mg/dl (70-99); Magnesium 1.9 mg/dl (1.6-2.3); Potassium 3.9 mmol/L (3.5-5.1); Sodium 140 mmol/L (135-145); eGFR > 60.00
[2023-08-27] MEDS: NICODERM TRANSDERMAL 14 MG TRANSDERM (09:25)
[2023-08-27] MEDS: PROTONIX 40 MG PO (09:28)
[2023-08-27] MEDS: SENOKOT 17.2 MG PO (09:28)
[2023-08-27] MEDS: COLACE 100 MG PO (09:28)
[2023-08-27] MEDS: CEFTIN 250 MG PO (09:29)
[2023-08-27] MEDS: FOLVITE 1 MG PO (09:29)
[2023-08-27] MEDS: THIAMINE INJECTION 200 MG IV ×2 (09:29→23:23)
--- NOTE | 2023-08-27 09:57 | W.PN.HOSP.TC ---
Today's Communication/Plan
-
NPO for OR
Assessment / Plan
Assessment / Plan
Hip X-Ray 08/26/23
IMPRESSION: Single frontal projection shows angulated, impacted proximal right femoral diaphyseal fracture as above. No definite osteolytic lesion at the level of the fracture identified radiographically.
Lower Extremity CT
IMPRESSION: Angulated mildly impacted proximal right femoral diaphyseal fracture as described. No abnormal osteolytic lesion identified at the level of the fracture at CT. The configuration is suggestive of atypical femoral fracture/bisphosphonate
related proximal femoral fracture.
Rt proximal femur Fx
- denied Trauma
- appreciate Ortho, plan for OR later today
- narcotic Analgesia PRN
-NPO for OR - change fluids to D5 + K
-medically optimized for surgery
HX ETOH use disorder complicated with pancreatitis in 2015
- patient now states drinks 2 beers/day not every day
- check ETOH level - none detected
- check UDS for occult substance abuse
- MSAS protocol
recent diagnosis UTI
-continue prescribed Ceftin - patient was 2 more days (end date 08/28/23)
Pre existing chr medical conditions but stable: Pending Rx reconciliation
Hypothyroidism on LT4
HX Asthma
DVT Px : SCD
Full code
IP MS
Anticipated Discharge: 24 - 48 hours
Subjective/Interval History
-
Date of Service: August 27, 2023
pain controlled
surgery not till this evening
no chest pain or shortness of breath
Objective Data
-
Labs:
Laboratory Results
08/27/23
06:56
WBC 9.5
Hgb 12.6
Hct 37.5
Plt Count 266
Sodium 140
Potassium 3.9
Chloride 111 H
Carbon Dioxide 21 L
BUN 5 L
Creatinine 0.5 L
Glucose 97
Calcium 8.8
Vital Signs:
Vital Signs
Temp Pulse Resp BP Pulse Ox
98.1 F 62 16 114/74 98
08/27/23 07:30 08/27/23 08:21 08/27/23 08:21 08/27/23 07:30 08/27/23 08:21
I&O
08/26/23 08/27/23 08/28/23
06:59 06:59 06:59
Intake Total 240 / 240 2520 / 2520
Output Total 400 / 400 700 / 700
Balance 240 / 240 2120 / 2120 -700 / -700
Review of Systems
-
History Source: Patient
All other systems: Reviewed and negative
Physical Exam
-
General: No Apparent Distress and Conversant
HEENT: PERRLA
Respiratory: Clear to Auscultation; Negative Wheezes
Cardiac: Regular Rhythm and S1/S2
GI: Soft and Nontender
Musculoskeletal: No Edema
Skin: Warm and Dry; Negative Rash
Neuro: AO x 3
Psych: Calm
Data Reviewed
-
Diagnostic Radiology: Report Reviewed by me
Labs: Labs Reviewed by me
[2023-08-27] MEDS: KCL 1010 MEQ IV (11:04)
--- NOTE | 2023-08-27 14:09 | CM ---
Reviewed the chart notes and spoke with the patient at the bedside. Also spoke with her associate attorney Mj Annabella ([phone]). Patient expects to go to the OR today for hip fracture repair. Explained to the associate attorney that until surgery is complete
and physician places weight bearing status, CM could not provide information as to what the patient's recovery period will involve. Patient is expected to surrender herself to the court next week. CM continues to be available to patient/family and
is monitoring medical plan for needs at discharge.
Plan: Discharge plans will depend on the patient's progress.
--- NOTE | 2023-08-27 21:58 | OR.RPT ---
Operative Report
Operative Report
Anesthesia Type:
Spinal with conversion to general IntraOp
Operative Indications:
Right subtrochanteric femur fracture
Operative Findings :
Same
Complications:
None
Implants:
Silas gamma 360 mm x 10 mm nail, 85 mm cephalomedullary lag screw, 5 mm x 45 mm, 5 mm x 52.5 mm distal interlocking screws
Procedure and Technique:
Insertion right long cephalomedullary nail
INDICATIONS FOR PROCEDURE:
58-year-old female presented to the emergency department with complaints of right hip pain and inability to bear weight. She was subsequently diagnosed with right subtrochanteric femur fracture admitted to the medical service. Orthopedics was
consulted she reports that she has had progressively worsening right thigh pain over the last month. She reports that she was walking without significant trauma when she felt her leg snap. She does report that she is on bisphosphonate therapy for
osteoporosis over the last couple of years. We discussed treatment options at length. Was my recommendation proceed with operative fixation in the form of cephalomedullary nail. We discussed risks benefits and alternatives to surgery. We
discussed the usual expected perioperative and postoperative course. After discussion written informed consent was obtained.
OPERATIVE PROCEDURE:
Patient was seen and identified in the preoperative holding area. Operative extremity was marked. All questions were addressed. She was taken to the operating room where spinal anesthesia was administered. She was placed supine on a fracture
table. Contralateral leg was secured to the contralateral post. Operative extremity was placed in a well-padded fracture boot. Provisional reduction was performed and fluoroscopic imaging confirmed a displaced subtrochanteric femur fracture.
Operative extremity was then prepped and draped in a normal sterile fashion. Timeout was performed again identifying the correct operative extremity. Preoperative antibiotics were addressed. Proximally 5 cm incision was made proximal to the tip
of the greater trochanter. We did have difficulty obtaining the initial starting point given the movement of the proximal fracture fragment. Decision was then made to directly reduce the fragment. Additional incision was made at the fracture
site. Sharp dissection was carried through skin subcutaneous tissues deep fascial layer. Blunt dissection was performed down to the fracture site. Provisional reduction was performed with a Morales elevator. A starting point was then achieved at
the tip of the greater trochanter and this was advanced to appropriate level. This was confirmed to be in appropriate position on orthogonal fluoroscopic imaging. Proximal opening reamer was then utilized and a ball-tipped guidewire was passed to
the level of the distal femur and was confirmed to bypassed the fracture site. Holding the fracture reduced, stepwise reaming was performed to 11.5 mm. Decision was made to proceed with 360 mm x 10 mm long nail. This was inserted and advanced
appropriate depth. Traction was then released and there was good reduction of the fracture site. Attention was turned to the proximal cephalomedullary lag screw. Trocar was placed through the aiming arm and guidepin was passed through the femoral
neck and head to appropriate depth. Attention was paid to minimize tip apex distance. Appropriately sized cephalomedullary lag screw was then inserted to appropriate depth. Setscrew was deployed. Aiming arm was removed and attention was then
turned to the distal femur and 2 distal interlocking screws were placed through additional stab incisions via perfect [place] technique. Final imaging confirmed appropriate position of the implant and fracture reduction. Wounds were then copiously
irrigated normal saline solution. Wounds were closed in layered fashion utilizing 0 Vicryl, 2-0 Vicryl and atpan for skin. Aquacel dressings were applied. Anesthesia was reversed and patient was taken to PACU in stable condition. Postoperative
plans include weightbearing to the patient's tolerance of the operative extremity. Will recommend DVT prophylaxis 40 mg Lovenox daily for 28 days. Plan to see patient back in the office in 2 weeks. All questions were addressed and answered.
Disposition:
PACU stable condition
--- NOTE | 2023-08-27 23:00 | PTCARENOTE ---
Received pt from PACU. AAOx3. VSS. 3L O2, 93%. s/p insertion of right long cephalomedullary nail, 3 dressings to R hip/thigh. Small drainage. Pt denies pain. Neurovascular check as documented. Ice pack applied to R hip. Complaining of nausea. D5
Ringers @ 80ml/hr. Resting comfortably in bed, call [facility] within reach.
[2023-08-27] MEDS: CEFTIN PO (23:19)
[2023-08-27] MEDS: COLACE PO (23:20)
[2023-08-27] MEDS: SENOKOT PO (23:21)
[2023-08-27] MEDS: COMPAZINE 5 MG IV (23:36)
[2023-08-28] VITALS (9 sets, daily range): BP systolic 96–112; BP diastolic 56–69; PULSE 69; O2SAT 98
[2023-08-28] MEDS: ANCEF 5 IV ×2 (00:48→08:53)
[2023-08-28] MEDS: TYLENOL PO (03:53)
[2023-08-28] MEDS: SYNTHROID 100 MCG PO (05:09)
[2023-08-28] MEDS: DILAUDID 0.5 MG IV ×3 (05:16→20:03)
[2023-08-28] MEDS: KCL 1010 MEQ IV ×2 (05:21→17:50)
[2023-08-28 06:22] LABS: Hematocrit 33.5 % (37.0-47.0); Hemoglobin 11.7 g/dL (12.0-16.0); Mean Corp Hgb Conc. 34.9 g/dL (33.0-37.0); Mean Corpuscular Hgb 31.9 pg (27.0-31.0); Mean Corpuscular Volume 91.3 fL (81.0-99.0); Mean Platelet Volume 9.4 fL (7.4-10.4); Platelet Count 234 10^3/uL (130-400); Red Blood Cell Count 3.67 10^6/uL (4.20-5.40); Red Cell Dist. Width 12.6 % (11.5-14.5); White Blood Cell Count 12.1 10^3/uL (4.8-10.8)
[2023-08-28 06:55] LABS: Blood Urea Nitrogen 6 mg/dl (7-17); Calcium 8.1 mg/dl (8.4-10.2); Carbon Dioxide 21 mmol/L (22-30); Chloride 110 mmol/L (98-107); Estimated Creatinine Clearance 79 ml/min; Glucose 128 mg/dl (70-99); Potassium 4.2 mmol/L (3.5-5.1); Sodium 136 mmol/L (135-145); eGFR > 60.00
[2023-08-28] MEDS: NICODERM TRANSDERMAL 14 MG TRANSDERM (08:50)
[2023-08-28] MEDS: FOLVITE 1 MG PO (08:51)
[2023-08-28] MEDS: TYLENOL 650 MG PO ×4 (08:51→20:03)
[2023-08-28] MEDS: SENOKOT 17.2 MG PO ×2 (08:51→20:03)
[2023-08-28] MEDS: CEFTIN 250 MG PO ×2 (08:51→20:06)
[2023-08-28] MEDS: PROTONIX 40 MG PO (08:51)
[2023-08-28] MEDS: COLACE 100 MG PO ×2 (08:52→20:03)
[2023-08-28] MEDS: THIAMINE INJECTION 200 MG IV ×2 (08:52→20:04)
[2023-08-28] MEDS: LOVENOX 40 MG SC (08:53)
--- NOTE | 2023-08-28 09:52 | W.PN.HOSP.TC ---
Today's Communication/Plan
-
see plan
Assessment / Plan
Assessment / Plan
Hip X-Ray 08/26/23
IMPRESSION: Single frontal projection shows angulated, impacted proximal right femoral diaphyseal fracture as above. No definite osteolytic lesion at the level of the fracture identified radiographically.
Lower Extremity CT
IMPRESSION: Angulated mildly impacted proximal right femoral diaphyseal fracture as described. No abnormal osteolytic lesion identified at the level of the fracture at CT. The configuration is suggestive of atypical femoral fracture/bisphosphonate
related proximal femoral fracture.
Rt proximal femur Fx
-appreciate ortho s/p OR 08/26
-continue Lovenox for DVT PPx
-oxycodone PRN
-F/U PT/OT evals
HX ETOH use disorder complicated with pancreatitis in 2015
- patient now states drinks 2 beers/day not every day
- check ETOH level - none detected
- check UDS for occult substance abuse
- MSAS protocol - has not required Ativan
recent diagnosis UTI
-continue prescribed Ceftin - patient was 2 more days (end date 08/28/23)
Pre existing chr medical conditions but stable: Pending Rx reconciliation
Hypothyroidism on LT4
HX Asthma
DVT Px : lovenox subQ
Full code
IP MS
Anticipated Discharge: 24 - 48 hours
Subjective/Interval History
-
Date of Service: August 28, 2023
feeling well
pain controlled
no chest pain
awaiting to work with PT
Objective Data
-
Labs:
Laboratory Results
08/28/23
05:47
WBC 12.1 H
Hgb 11.7 L
Hct 33.5 L
Plt Count 234
Sodium 136
Potassium 4.2
Chloride 110 H
Carbon Dioxide 21 L
BUN 6 L
Creatinine 0.4 L
Glucose 128 H
Calcium 8.1 L
Vital Signs:
Vital Signs
Temp Pulse Resp BP Pulse Ox
98.1 F 72 16 104/56 96
08/28/23 07:30 08/28/23 07:44 08/28/23 07:44 08/28/23 07:30 08/28/23 07:44
I&O
08/27/23 08/28/23 08/29/23
06:59 06:59 06:59
Intake Total 2520 / 2520 200 / 200
Output Total 400 / 400 1220 / 1220
Balance 2120 / 2120 -1020 / -1020
Review of Systems
-
History Source: Patient
All other systems: Reviewed and negative
Physical Exam
-
General: No Apparent Distress and Conversant
HEENT: PERRLA
Respiratory: Clear to Auscultation; Negative Wheezes
Cardiac: Regular Rhythm and S1/S2
GI: Soft and Nontender
Musculoskeletal: No Edema
Skin: Warm and Dry; Negative Rash
Neuro: AO x 3
Psych: Calm
Data Reviewed
-
Diagnostic Radiology: Report Reviewed by me
Labs: Labs Reviewed by me
--- NOTE | 2023-08-28 14:09 | W.PN.ORTHO ---
Today's Communication / Plan
-
58-year-old female postop day 1 status post right long cephalomedullary nail fixation for atypical subtrochanteric femur fracture
Weightbearing as tolerated right lower extremity
PT OT
Pain control
DVT prophylaxis: Recommend Lovenox renally dosed daily x 28 days
Medical management per primary team
Had discussed with patient discontinuing bisphosphonate therapy for the time being following up with prescribing physician to consider alternative treatment options given her fracture. There does not appear to be any concern of lateral cortical
beaking or stress fracture of left subtrochanteric region on radiographs
Plan: Follow-up with myself outpatient in 2 to 3 weeks for repeat evaluation with plan removal of tapan
Subjective
.
.:
Patient resting comfortably in chair. She reports that her pain is significantly improved compared to pain she was having prior to surgery
Vital Signs and Labs
.
Vital Signs and Labs:
Lab Results
08/28/23 05:47
08/28/23 05:47
Temp Pulse Resp BP Pulse Ox
98.3 F 80 16 97/57 97
08/28/23 11:15 08/28/23 11:15 08/28/23 11:15 08/28/23 11:15 08/28/23 11:15
PT 13.5 Sec (11.4-14.6) 08/25/23 23:55
INR 1.05 08/25/23 23:55
Physical Exam
-
Musculoskeletal right lower extremity
Dressing with minimal bloody drainage
Soft compressible leg and thigh
Positive EHL, FHL, ankle dorsiflexion, plantarflexion
--- NOTE | 2023-08-28 14:57 | CM ---
Reviewed the chart notes and spoke with the patient at the bedside. Patient is POD#1 for hip fx repair. PT/OT recommending SNF vs home with VN depending on how patient progresses. Discussed with the patient. Patient leaning towards home with VN.
Patient needs to be able to navigate stairs as her bedroom is currently in the basement. Patient is currently on supplemental O2. Will see if patient is able to wean from O2, if not will required home O2. CM continues to be available to
patient/family and is monitoring medical plan for needs at discharge.
Plan: Discharge plans will depend on the patient's progress.
--- NOTE | 2023-08-28 18:27 | PTCARENOTE ---
182: Patient arrived to 2S. Full head to toe assessment completed. R LE neurovascular assessment completed. 3 aquacells on R side with a small amount of drainage intact. IVF running per order. Patient wearing 3L NC with SpO2 greater than 92%. Call
[place] within reach and bed in lowest position.
[2023-08-29] VITALS (7 sets, daily range): BP systolic 94–117; BP diastolic 64–73; PULSE 77–78; O2SAT 95–97
[2023-08-29] MEDS: TYLENOL PO (00:58)
[2023-08-29] MEDS: DILAUDID 0.5 MG IV ×2 (04:18→12:26)
[2023-08-29] MEDS: TYLENOL 650 MG PO ×5 (04:24→20:48)
[2023-08-29] MEDS: SYNTHROID 100 MCG PO (04:25)
[2023-08-29 05:51] LABS: Hematocrit 29.4 % (37.0-47.0); Mean Corpuscular Hgb 31.2 pg (27.0-31.0); Mean Corpuscular Volume 91.6 fL (81.0-99.0); Mean Platelet Volume 9.5 fL (7.4-10.4); Platelet Count 235 10^3/uL (130-400); Red Blood Cell Count 3.21 10^6/uL (4.20-5.40); White Blood Cell Count 8.1 10^3/uL (4.8-10.8)
[2023-08-29] MEDS: ROXICODONE 5 MG PO (08:04)
[2023-08-29] MEDS: NICODERM TRANSDERMAL 14 MG TRANSDERM (08:05)
[2023-08-29] MEDS: LOVENOX 40 MG SC (08:06)
[2023-08-29] MEDS: CEFTIN 250 MG PO (08:09)
[2023-08-29] MEDS: VITAMIN B1 100 MG PO ×2 (08:09→20:48)
[2023-08-29] MEDS: PROTONIX 40 MG PO (08:09)
[2023-08-29] MEDS: COLACE 100 MG PO ×2 (08:09→20:48)
[2023-08-29] MEDS: FOLVITE 1 MG PO (08:10)
[2023-08-29] MEDS: SENOKOT 17.2 MG PO ×2 (08:10→20:48)
--- NOTE | 2023-08-29 09:45 | W.PN.HOSP.TC ---
Today's Communication/Plan
-
dispo planning
Assessment / Plan
Assessment / Plan
Hip X-Ray 08/26/23
IMPRESSION: Single frontal projection shows angulated, impacted proximal right femoral diaphyseal fracture as above. No definite osteolytic lesion at the level of the fracture identified radiographically.
Lower Extremity CT
IMPRESSION: Angulated mildly impacted proximal right femoral diaphyseal fracture as described. No abnormal osteolytic lesion identified at the level of the fracture at CT. The configuration is suggestive of atypical femoral fracture/bisphosphonate
related proximal femoral fracture.
Rt proximal femur Fx
-appreciate ortho s/p OR 08/26
-continue Lovenox for DVT PPx. *patient doesn't want to do injections at home. if she goes home would change to Eliquis 2.5 BID (higher risk as she's a smoker). Discussed with Dr. Saul
-oxycodone PRN
-F/U PT/OT evals - HH versus SNF
HX ETOH use disorder complicated with pancreatitis in 2015
- patient now states drinks 2 beers/day not every day
- check ETOH level - none detected
- check UDS for occult substance abuse
- MSAS protocol - has not required Ativan
recent diagnosis UTI
-continue prescribed Ceftin - patient was 2 more days (end date 08/28/23)
Pre existing chr medical conditions but stable: Pending Rx reconciliation
Hypothyroidism on LT4
HX Asthma
DVT Px : lovenox subQ
Full code
IP MS
Anticipated Discharge: Within 24 hours
Subjective/Interval History
-
Date of Service: August 29, 2023
pain controlled, feeling well
did well with PT
Objective Data
-
Labs:
Laboratory Results
08/29/23
05:07
WBC 8.1
Hgb 10.0 L
Hct 29.4 L
Plt Count 235
Vital Signs:
Vital Signs
Temp Pulse Resp BP Pulse Ox
98.5 F 72 16 94/67 97
08/29/23 07:35 08/29/23 07:49 08/29/23 07:49 08/29/23 07:35 08/29/23 08:37
I&O
08/28/23 08/29/23 08/30/23
06:59 06:59 06:59
Intake Total 200 / 200 3660 / 3660
Output Total 1220 / 1220 400 / 400
Balance -1020 / -1020 3260 / 3260
Review of Systems
-
History Source: Patient
All other systems: Reviewed and negative
Physical Exam
-
General: No Apparent Distress and Conversant
HEENT: PERRLA
Respiratory: Clear to Auscultation; Negative Wheezes
Cardiac: Regular Rhythm and S1/S2
GI: Soft and Nontender
Musculoskeletal: No Edema
Skin: Warm and Dry; Negative Rash
Neuro: AO x 3
Psych: Calm
Data Reviewed
-
Diagnostic Radiology: Report Reviewed by me
Labs: Labs Reviewed by me
--- NOTE | 2023-08-29 14:51 | CM ---
Chart reviewed and patient is doing much better today with physical therapy and recommendation is to home with visiting nurses, Patient will not require home oxygen, case manager specialist reviewed visiting nurse options with patient and she selected [facility],
referral sent to [facility]. driver manager reached out to patient's permastone mechanic and he stated that since patient has been cleared to return to home she will need to be present at court hearing on Friday, patient made aware.
Plan; Home with [facility] visiting nurses
[facility]di
[phone]
--- NOTE | 2023-08-29 15:13 | PN.CDI ---
CDI
- -
CDI:
Physician Documentation Request
Admit Date: 08/26/23 01:03
Dear Doctor Robert,
Clinical Indicators:
Patient admitted with right proximal femur fracture; s/p right long cephalomedullary nail fixation 08/26.
08/26 Anesthesia Report, EBL: 200 ml IVF 1000 ml
Hgb/Hct trend:
08/25/23 08/28/23 08/29/23
23:55 05:47 05:07
Hgb 14.2 11.7 L 10.0 L
Hct 41.8 33.5 L 29.4 L
Based on the above, could you clarify in the progress notes, the appropriate diagnosis, if significant, that supports the above abnormalities and additional evaluation, monitoring and/or treatment rendered:
Anemia, multifactorial due to acute blood loss and hemodilution
Anemia due to hemodilution only
Abnormal lab values, clinically insignificant
Other, please specify
Use of terms such as suspected, likely, concern for, or probable (associated with a specific diagnosis that is being evaluated, monitored, or treated as if it exists) are acceptable and can be coded in the inpatient setting, when documented at the
time of discharge.
Thank you,
Crystal Carballo RN BSN
CDI Specialist
available via tiger text
Please use your independent medical judgment in providing your response.
[2023-08-30] MEDS: TYLENOL PO (00:20)
[2023-08-30 03:20] VITALS: BP 123/81
[2023-08-30] MEDS: TYLENOL 650 MG PO ×2 (03:27→08:13)
[2023-08-30] MEDS: ROXICODONE 5 MG PO (03:32)
[2023-08-30] MEDS: SYNTHROID 100 MCG PO (05:56)
[2023-08-30 07:28] VITALS: BP 109/65
[2023-08-30] MEDS: SENOKOT PO ×2 (08:13→08:34)
[2023-08-30] MEDS: VITAMIN B1 100 MG PO (08:13)
[2023-08-30] MEDS: FOLVITE 1 MG PO (08:13)
[2023-08-30] MEDS: ELIQUIS 2.5 MG PO (08:13)
[2023-08-30] MEDS: PROTONIX 40 MG PO (08:13)
[2023-08-30] MEDS: COLACE PO ×2 (08:14→08:34)
[2023-08-30] MEDS: NICODERM TRANSDERMAL 14 MG TRANSDERM (08:14)
--- NOTE | 2023-08-30 09:02 | W.PN.HOSP.TC ---
Addendum entered and electronically signed by Isadora Jones MD 08/30/23 13:40:
*addenduM - UTox screening was positive for Fentanyl
Original Note:
Today's Communication/Plan
-
OK for DC today
Assessment / Plan
Assessment / Plan
Hip X-Ray 08/26/23
IMPRESSION: Single frontal projection shows angulated, impacted proximal right femoral diaphyseal fracture as above. No definite osteolytic lesion at the level of the fracture identified radiographically.
Lower Extremity CT
IMPRESSION: Angulated mildly impacted proximal right femoral diaphyseal fracture as described. No abnormal osteolytic lesion identified at the level of the fracture at CT. The configuration is suggestive of atypical femoral fracture/bisphosphonate
related proximal femoral fracture.
Rt proximal femur Fx
-appreciate ortho s/p OR 08/26
-continue Lovenox for DVT PPx. *patient doesn't want to do injections at home. will DC on Eliquis 2.5 BID (higher risk as she's a smoker). Discussed with Dr. Saul
-oxycodone PRN
-F/U PT/OT evals - HH
acute blood loss anemia post-op
-no further signs of bleeding
HX ETOH use disorder complicated with pancreatitis in 2015
- patient now states drinks 2 beers/day not every day
- check ETOH level - none detected
- check UDS for occult substance abuse - negative
- MSAS protocol - has not required Ativan
recent diagnosis UTI
-continue prescribed Ceftin - patient was 2 more days (end date 08/28/23)
Pre existing chr medical conditions but stable: Pending Rx reconciliation
Hypothyroidism on LT4
HX Asthma
DVT Px : Eliquis
Full code
IP MS
Anticipated Discharge: Today
Subjective/Interval History
-
Date of Service: August 30, 2023
feeling well and ready to go home
Objective Data
-
Vital Signs:
Vital Signs
Temp Pulse Resp BP Pulse Ox
98.2 F 72 17 109/65 94
08/30/23 07:28 08/30/23 07:28 08/30/23 07:28 08/30/23 07:28 08/30/23 07:28
I&O
08/29/23 08/30/23 08/31/23
06:59 06:59 06:59
Intake Total 3660 / 3660 1440 / 1440
Output Total 400 / 400
Balance 3260 / 3260 1440 / 1440
Review of Systems
-
History Source: Patient
All other systems: Reviewed and negative
Physical Exam
-
General: No Apparent Distress and Conversant
HEENT: PERRLA
Respiratory: Clear to Auscultation; Negative Wheezes
Cardiac: Regular Rhythm and S1/S2
GI: Soft and Nontender
Musculoskeletal: No Edema
Skin: Warm and Dry; Negative Rash
Neuro: AO x 3
Psych: Calm
Data Reviewed
-
Diagnostic Radiology: Report Reviewed by me
Labs: Labs Reviewed by me
--- NOTE | 2023-08-30 09:21 | W.DS.TRANS ---
DC Summary - [employer]
-
Discharge Instructions:
Discharge Diagnosis/Procedures right long cephalomedullary nail fixation for
atypical subtrochanteric femur fracture
Diet Regular
Activity As tolerated
Driving Restrictions Not until seen by your Dr
Bathing Restrictions None
Other Services PT,OT,VN
Instructions: Apixaban
Stand-Alone Forms:
Changes to Home Medications: Yes
Discharge Medications:
DC Medications w/original date entered in [employer]
albuterol sulfate 90 mcg/actuation aerosol inhaler 1 puff inhalation R Q4HPRN PRN SHORTNESS OF BREATH 09/27/15
beclomethasone dipropionate 40 mcg/actuation aerosol inhaler (Qvar) 2 inh IH BID Lung/Breathing Issues 09/27/15
calcium carbonate 500 mg-vitamin D3 15 mcg (600 unit) tablet 1 ea PO DAILY Supplement 09/27/15
folic acid 1 mg tablet 1 mg PO DAILY Supplement 09/27/15
levothyroxine 100 mcg tablet 100 mcg PO DAILY AT 0700 Thyroid 09/27/15
milk thistle 500 mg capsule 500 mg PO DAILY 09/27/15
pantoprazole 40 mg tablet,delayed release 40 mg PO DAILY #30 tabs 09/30/15
ipratropium 0.5 mg-albuterol 3 mg (2.5 mg base)/3 mL nebulization soln 3 ml inhalation Q6H PRN wheezing #90 mL 06/19/23
phenazopyridine 200 mg tablet (Pyridium) 200 mg PO PC PRN Pain 6 doses #6 tabs 08/17/23
apixaban 2.5 mg tablet (Eliquis) 2.5 mg PO BID #54 tabs 08/30/23
nicotine 14 mg/24 hr daily transdermal patch 14 mg transdermal DAILY #0 ea 08/30/23
oxycodone 5 mg tablet 5 mg PO Q6HPRN PRN severe pain #10 tabs 08/30/23
Home Medication Changes
Stop bisphosphonate therapy - speak about this further with your PCP
Take Eliquis 2.5mg twice a day x 4 weeks to prevent blood clots
Stop Motrin while on Eliquis
Staple removal in 2 weeks ([address] Dr[address] Saul)
You completed your antibiotic course in the hospital.
Pending Results: No
--- NOTE | 2023-08-30 11:02 | PTCARENOTE ---
Attempted to call [facility] with report, but did not answer. Voicemail was left and note written on discharge paperwork for nurse to call back.
[2023-08-30 11:15] VITALS: BP 112/70
--- NOTE | 2023-08-30 13:36 | W.DCSUMMARY ---
Discharge Summary
Discharge Data
Date of Admission: 08/26/23
Date of Discharge: 08/30/23
-
Pending Results: No
Hospital Course
Discharging Physician : Dr. Isadora Jones
Disposition : Home with HH
Primary care physician : Dr. Elsa Vargas
Principal Discharge diagnosis : status post right long cephalomedullary nail fixation for atypical subtrochanteric femur fracture on 08/27/23
Hospital Course :
Ms. Avis Reyna is a 58 yo woman with prior hx tobacco use, alcohol use disorder, asthma, hypothyroidism who presents to the ER with painful left hip without report of fall. Hip x-ray with e/o impacted proximal right femoral diaphyseal fracture;
suggestive of atypical femoral fracture related to bisphosphonate therapy. She was admitted to medicine with ortho consulting and underwent surgery on 08/27/23. Worked with PT and cleared for discharge home with . She is prescribed Eliquis 2.5mg
PO BID for DVT PPx. She will follow up with ortho in 2-3 weeks.
Discussed with patient discontinuing bisphosphonate therapy.
Time spent on discharge was 31 minutes.
Important imaging findings :
Hip X-Ray 08/26/23
IMPRESSION: Single frontal projection shows angulated, impacted proximal right femoral diaphyseal fracture as above. No definite osteolytic lesion at the level of the fracture identified radiographically.
Lower Extremity CT
IMPRESSION: Angulated mildly impacted proximal right femoral diaphyseal fracture as described. No abnormal osteolytic lesion identified at the level of the fracture at CT. The configuration is suggestive of atypical femoral fracture/bisphosphonate
related proximal femoral fracture.
Procedure findings :
Discharge Plan
-
Patient Disposition: Home with Home Care
Discharge Diagnosis/Procedures: right long cephalomedullary nail fixation for atypical subtrochanteric femur fracture
Diet: Regular
Activity: As tolerated
Driving Restrictions: Not until seen by your Dr
Bathing Restrictions: None
Other Services: VN, PT and OT
Instructions: Apixaban
Referrals:
Elsa Vargas PA-C [Family Provider] - in less than 1 week
Cristopher Saul MD [Active] - in two to three weeks
Additional Discharge Medication Instructions: Stop bisphosphonate therapy - speak about this further with your PCP
Take Eliquis 2.5mg twice a day x 4 weeks to prevent blood clots
Stop Motrin while on Eliquis
Staple removal in 2 weeks (with Dr. Saul)
You completed your antibiotic course in the hospital.
Prescriptions:
New
Eliquis 2.5 mg Tablet
2.5 mg PO BID Qty: 54 0RF
nicotine 14 mg/24 hr Patch 24 Hour
14 mg transdermal DAILY Qty: 0 0RF
oxycodone 5 mg Tablet
5 mg PO Q6HPRN PRN (Reason: severe pain) Qty: 10 0RF
pantoprazole [Protonix] 40 mg tablet,delayed release (DR/EC)
40 mg PO DAILY Qty: 30 0RF
Continued
milk thistle 500 MG capsule
500 mg PO DAILY
levothyroxine 100 MCG tablet
100 mcg PO DAILY AT 0700
folic acid 1 MG tablet
1 mg PO DAILY
albuterol sulfate 1 PUFF HFA aerosol inhaler
1 puff inhalation R Q4HPRN PRN (Reason: SHORTNESS OF BREATH)
Qvar 8.7 GM aerosol
2 inh IH BID
calcium carbonate-vitamin D3 1 EACH tablet
1 ea PO DAILY
pantoprazole 40 MG tablet,delayed release (DR/EC)
40 mg PO DAILY Qty: 30 0RF
ipratropium-albuterol 0.5 mg-3 mg(2.5 mg base)/3 mL solution for nebulization
3 ml inhalation Q6H PRN (Reason: wheezing) Qty: 90 0RF
phenazopyridine [Pyridium] 200 mg tablet
200 mg PO PC PRN (Reason: Pain) Qty: 6 0RF
Discontinued
ibuprofen 600 MG tablet
600 mg PO TIDPRN PRN (Reason: pain) Qty: 30 0RF
cefuroxime axetil 500 mg tablet
500 mg PO BID
Discharge Orders:
Discharge Patient (As Directed); Ordered 08/30/23
Ordered By: Isadora Jones
Discharge Date and Time
Discharge Date/Time: 08/30/23 11:41
Print Language: [place]LAND[place]
--- NOTE | 2023-08-30 15:50 | CM ---
Pt dc'd to home with [facility].
Transportation via family.
No additional needs identified.
== END 2023-08-30 11:41 | disposition home health service (06) | DRG 481 ==
LOC: 2 SOUTH 01:03
PROVIDERS: Physician Assistant Medical; ADMITTING PHYSICIAN Internal Medicine; ATTENDING PHYSICIAN Student in an Organized Health Care Education/Training Program; CONSULT PHYSICIAN Orthopaedic Surgery; EMERGENCY PHYSICIAN Student in an Organized Health Care Education/Training Program; FAMILY PHYSICIAN Physician Assistant
PROC: 0QS606Z Reposition Right Upper Femur with Intramedullary Internal Fixation Device, Open Approach (ICD-10-PCS; 2023-08-27)
DX: M84.750A Atypical femoral fracture, unspecified, initial encounter for fracture (principal); D62 Acute posthemorrhagic anemia; T45.8X5A Adverse effect of other primarily systemic and hematological agents, initial encounter; W18.39XA Other fall on same level, initial encounter; Y93.01 Activity, walking, marching and hiking; Y92.9 Unspecified place or not applicable; E03.9 Hypothyroidism, unspecified; F17.210 Nicotine dependence, cigarettes, uncomplicated; F10.10 Alcohol abuse, uncomplicated; F12.90 Cannabis use, unspecified, uncomplicated; E55.9 Vitamin D deficiency, unspecified; J45.909 Unspecified asthma, uncomplicated; Z88.8 Allergy status to other drugs, medicaments and biological substances; Z79.890 Hormone replacement therapy; Z79.83 Long term (current) use of bisphosphonates
CPT/HCPCS: 73501; 73502; 73700; 76000; 80048; 80306; 80307; 82077; 82977; 83735; 85025; 85027; 85610; 85730; 86850; 86900; 86901; 94640; 97116; 97162; 97166; 97530; 97535; 99285; 99406; C1713; C1769

== ENCOUNTER 2023-10-15 15:01 | Outpatient (RCR) | payer OTHER, SELFPAY | END 2023-10-15 23:59 | disposition home or self-care (01) | LOC: RPT 15:01 | PROVIDERS: ATTENDING PHYSICIAN Orthopaedic Surgery; FAMILY PHYSICIAN Physician Assistant | DX: S72.91XD Unspecified fracture of right femur, subsequent encounter for closed fracture with routine healing (principal); X58.XXXD Exposure to other specified factors, subsequent encounter; Z73.6 Limitation of activities due to disability | CPT/HCPCS: 97110; 97112; 97161; 97530 ==

== ENCOUNTER 2023-11-03 16:07 | Outpatient (RCR) | payer OTHER, SELFPAY | END 2023-11-03 23:59 | disposition home or self-care (01) | LOC: RPT 16:07 | PROVIDERS: ATTENDING PHYSICIAN Orthopaedic Surgery; FAMILY PHYSICIAN Physician Assistant | DX: S72.91XD Unspecified fracture of right femur, subsequent encounter for closed fracture with routine healing (principal); Z73.6 Limitation of activities due to disability | CPT/HCPCS: 97110; 97112; 97530 ==

== ENCOUNTER → 2023-11-04 08:30 | Outpatient (REF) | payer OTHER, SELFPAY | LOC: WDC 08:30 | PROVIDERS: ATTENDING PHYSICIAN Obstetrics & Gynecology; FAMILY PHYSICIAN Physician Assistant | DX: Z12.31 Encounter for screening mammogram for malignant neoplasm of breast (principal) | CPT/HCPCS: 77063; 77067 ==

== ENCOUNTER → 2023-11-24 13:20 | Outpatient (REF) | payer OTHER, SELFPAY | LOC: RAD 13:20 | PROVIDERS: ATTENDING PHYSICIAN Obstetrics & Gynecology; FAMILY PHYSICIAN Physician Assistant | DX: N39.0 Urinary tract infection, site not specified (principal) | CPT/HCPCS: 76770 ==

== ENCOUNTER → 2024-08-30 12:57 | Outpatient (REF) | payer OTHER, SELFPAY | LOC: RAD 12:57 | PROVIDERS: ATTENDING PHYSICIAN Student in an Organized Health Care Education/Training Program; FAMILY PHYSICIAN Physician Assistant | DX: M80.051A Age-related osteoporosis with current pathological fracture, right femur, initial encounter for fracture (principal); Z78.0 Asymptomatic menopausal state | CPT/HCPCS: 77080 ==